=== PATIENT | female | born 1945 | race Caucasian/White ===

== ENCOUNTER 2019-06-25 10:31 | Outpatient (CLI) | payer MEDICARE, OTHER ==
--- NOTE | 2019-06-25 11:40 | RAD ---
XR Lumbar Spine 2 Or 3 View HISTORY: Fall, low back pain FINDINGS: No fracture or subluxation is identified. Multilevel degenerative changes are present. There are vasc ular calcifications.
== END 2019-06-25 10:32 | disposition home or self-care (01) ==
LOC: MADRAD 10:31
PROVIDERS: ATTEND Family Medicine
DX: N39.0 Urinary tract infection, site not specified (principal)
CPT/HCPCS: 72100